=== PATIENT | female | born 1940 | race Caucasian/White ===

== ENCOUNTER → 2017-12-03 13:52 | Outpatient (CLI) | payer MEDICARE, OTHER, SELFPAY ==
--- NOTE | 2017-12-03 13:53 | CDU_ITS ---
Reason For Study: carotid artery calcification Rt. Velocities/BP Lt. Velocities/BP Prox CCA 86.2/13.5 cm/sec. Prox CCA 90.3/12.9 cm/sec. Mid CCA 76.8/11.1 cm/sec. Mid CCA 74.5/17.0 cm/sec. Dist CCA 78.0/15.2 cm/sec. Dist CCA 78.0/15.8 cm/sec. Prox ICA 147/22.6 cm/sec. Prox ICA 67.4/14.7 cm/sec. Mid ICA 126/18.7 cm/sec. Mid ICA 119/28.3 cm/sec. Dist ICA 101/24.6 cm/sec. Dist ICA 75.6/17.4 cm/sec. Rt. ICA/CCA = 1.9. Lt. ICA/CCA = 1.6. Prox ECA 183 cm/sec. Prox ECA 215 cm/sec. Rt. Vert. 50.4/14.1 cm/sec. Lt. Vert. 62.7/17.6 cm/sec. Right Extracranial There is homogeneous, smooth atherosclerotic plaque noted in the right common carotid artery. There is heterogeneous, irregular atherosclerotic plaque noted in the right internal carotid artery. Distal ICA is tortuous. There is heterogeneous, irregular atherosclerotic plaque noted in the right external carotid artery. Antegrade flow is noted in the right vertebral artery. Left Extracranial There is homogeneous, smooth atherosclerotic plaque noted in the left common carotid artery. There is heterogeneous, irregular atherosclerotic plaque noted in the left internal carotid artery. Distal ICA is tortuous. There is heterogeneous, irregular atherosclerotic plaque noted in the left external carotid artery. Antegrade flow is noted in the left vertebral artery. Interpretation Summary Moderate (50-69%) stenosis right extracranial internal carotid. Mild (<50%) stenosis left extracranial internal carotid. Flow within the vertebral arteries is antegrade bilaterally. Ordering Physician: Efrain Lyons Referring Physician: Efrain Lyons Performed By: Silver De, RVT
== END ==
PROVIDERS: Family Provider Family Medicine; PCP Family Medicine; Visit Provider Family Medicine
DX: I65.23 Occlusion and stenosis of bilateral carotid arteries (principal)
CPT/HCPCS: 93880

== ENCOUNTER → 2018-01-14 13:29 | Outpatient (CLI) | payer MEDICARE, OTHER, SELFPAY ==
--- NOTE | 2018-01-14 13:29 | DT_ITS ---
This patient was seen during an EMR downtime January 11, 2018 - January 18, 2018. This patient may have a combination of paper and electronic documentation or all paper documentation. All documentation is viewable within the e-chart portion of [employer] for each patient visit.
--- NOTE | 2018-01-14 13:34 | MRI_ITS ---
STUDY: MRI LUMBAR SPINE WITHOUT CONTRAST REASON FOR EXAM: Female, 77 years old. Chronic low back pain TECHNIQUE: Standardized fat and water weighted pulse sequences were obtained in the sagittal and axial planes. COMPARISON: 05/30/2016 FINDINGS: T12-L1: Bulging annulus with mild bilateral foraminal stenoses. Normal lumbar lordosis. There is a levoscoliosis of the lumbar spine. Normal conus medullaris that terminates at the L1 level. L1-2: Bulging annulus and bilateral facet and ligamentum flavum hypertrophy with moderate right foraminal stenosis. L2-3: Bulging annulus and bilateral facet and ligamentum flavum hypertrophy and facet joint effusions. Mild to moderate central canal and moderate bilateral foraminal stenoses. L3-4: Bulging annulus and bilateral facet and ligamentum flavum hypertrophy with moderate central canal and severe left and moderate right foraminal stenoses. L4-5: Bulging annulus and left facet hypertrophy with mild central canal stenosis and moderate left and mild right foraminal stenoses. L5-S1: Bulging annulus and bilateral facet hypertrophy with mild left foraminal stenosis. Normal visualized sacral ala. Normal visualized paraspinous soft tissue structures. Small renal cysts. MRI/Spine Lumbar (Routine) IMPRESSION: Scoliosis and diffuse degenerative disease. Severe left foraminal stenosis at the L3-4 level. Electronically Signed: Mat Whitfield MD at 1:08 EDT Tel , Service support ,
== END ==
PROVIDERS: Family Provider Family Medicine; PCP Family Medicine; Visit Provider Family Medicine
DX: M54.5 Low back pain (principal)
CPT/HCPCS: 72148

== ENCOUNTER → 2018-06-08 12:42 | Outpatient (CLI) | payer MEDICARE, OTHER, SELFPAY ==
--- NOTE | 2018-06-08 12:47 | CDU_ITS ---
[id number] ^CDU^Carotid Duplex Ultrasound [id number] TAG_START Cardiovascular Services Carotid Duplex Ultrasound [facility] [place] [id number] Ordering Physician: Efrain Lyons TAG_ENDED TAG_START Name: PILLO TRIANA Study Date: 06/08/2018 12:54 PM Patient Location: [facility] : 1940 Gender: Female Age: 77 yrs Ethnicity: C TAG_ENDED Reason For Study: carotid stenosis Rt. Velocities/BP Lt. Velocities/BP Prox CCA 65.1/15.2 cm/sec. Prox CCA 102/19.6 cm/sec. Mid CCA 69.2/14.1 cm/sec. Mid CCA 92.3/15.7 cm/sec. Dist CCA 80.9/13.5 cm/sec. Dist CCA 87.4/16.7 cm/sec. Prox ICA 161/27.5 cm/sec. Prox ICA 78.6/17.3 cm/sec. Mid ICA 121/19.6 cm/sec. Mid ICA 89.6/24.4 cm/sec. Dist ICA 72.0/15.9 cm/sec. Dist ICA 127/29.1 cm/sec. Rt. ICA/CCA = 2.3. Lt. ICA/CCA = 1.4. Prox ECA 173 cm/sec. Prox ECA 186 cm/sec. Rt. Vert. 70.7/19.6 cm/sec. Lt. Vert. 55.0/13.4 cm/sec. Right Extracranial There is heterogeneous, irregular atherosclerotic plaque noted in the right common carotid artery. There is heterogeneous, irregular atherosclerotic plaque noted in the right internal carotid artery. The right internal carotid artery is very tortuous. There is heterogeneous, irregular atherosclerotic plaque noted in the right external carotid artery. Antegrade flow is noted in the right vertebral artery. Left Extracranial There is homogeneous, smooth atherosclerotic plaque noted in the left common carotid artery. There is heterogeneous, irregular atherosclerotic plaque noted in the left internal carotid artery. The left internal carotid artery is very tortuous. There is heterogeneous, irregular atherosclerotic plaque noted in the left external carotid artery. Antegrade flow is noted in the left vertebral artery. Procedure Carotid Duplex [id number]. The exam was diagnostic. Exam performed in department. Interpretation Summary Moderate (50-69%) stenosis right extracranial internal carotid. Mild (<50%) stenosis left extracranial internal carotid. Flow within the vertebral arteries is antegrade bilaterally. TAG_START TAG_ENDED Ordering Physician: Efrain Lyons Performed By: Silver De RVT
== END ==
PROVIDERS: Family Provider Family Medicine; PCP Family Medicine; Referring Provider Family Medicine; Visit Provider Family Medicine
DX: I65.23 Occlusion and stenosis of bilateral carotid arteries (principal)
CPT/HCPCS: 93880

== ENCOUNTER → 2018-12-23 12:39 | Outpatient (CLI) | payer MEDICARE, OTHER, SELFPAY ==
--- NOTE | 2018-12-23 12:51 | CDU_ITS ---
Rt. Velocities/BP Lt. Velocities/BP Prox CCA 79.9/8.2 cm/sec. Prox CCA 70.6/8.0 cm/sec. Mid CCA 60.4/9.5 cm/sec. Mid CCA 84.9/13.5 cm/sec. Dist CCA 68.2/12.1 cm/sec. Dist CCA 62.9/12.4 cm/sec. Prox ICA 163.1/13.8 cm/sec. Prox ICA 68.4/12.4 cm/sec. Mid ICA 138.9/13.8 cm/sec. Mid ICA 66.2/15.7 cm/sec. Dist ICA 88.8/20.0 cm/sec. Dist ICA 132.2/24.1 cm/sec. Rt. ICA/CCA = 2.7. Lt. ICA/CCA = 1.6. Prox ECA 236.6/6.0 cm/sec. Prox ECA 132.1 cm/sec. Rt. Vert. 72.8/17.6 cm/sec. Lt. Vert. 44.1/9.1 cm/sec. Right Extracranial There is homogeneous, smooth atherosclerotic plaque noted in the right common carotid artery. There is heterogeneous, irregular atherosclerotic plaque noted in the right internal carotid artery. The right internal carotid artery is very tortuous. There is heterogeneous, irregular atherosclerotic plaque noted in the right external carotid artery. Antegrade flow is noted in the right vertebral artery. There is heterogeneous, irregular atherosclerotic plaque noted in the right bulb. Left Extracranial There is homogeneous, smooth atherosclerotic plaque noted in the left common carotid artery. There is heterogeneous, irregular atherosclerotic plaque noted in the left internal carotid artery. The left internal carotid artery is very tortuous. There is heterogeneous, irregular atherosclerotic plaque noted in the left external carotid artery. Antegrade flow is noted in the left vertebral artery. There is heterogeneous, irregular atherosclerotic plaque noted in the left bulb. Procedure Carotid Duplex [id number]. The exam was diagnostic. Exam performed in department. Interpretation Summary Moderate (50-69%) stenosis right extracranial internal carotid. Mild (<50%) stenosis left extracranial internal carotid. Flow within the vertebral arteries is antegrade bilaterally. Ordering Physician: Efrain Lyons Referring Physician: Iván Muniz Performed By: Silver De RVT
== END ==
PROVIDERS: Family Provider Family Medicine; PCP Family Medicine; Referring Provider Family Medicine; Visit Provider Family Medicine
DX: I65.23 Occlusion and stenosis of bilateral carotid arteries (principal)
CPT/HCPCS: 93880

== ENCOUNTER → 2020-01-11 13:18 | Outpatient (CLI) | payer MEDICARE, OTHER, SELFPAY ==
--- NOTE | 2020-01-11 13:28 | CDU_ITS ---
Reason For Study: CAROTID STENOSIS Rt. Velocities/BP Lt. Velocities/BP Prox CCA 56/9 cm/sec. Prox CCA 98/12 cm/sec. Mid CCA 66/10 cm/sec. Mid CCA 79/11 cm/sec. Dist CCA 67/12 cm/sec. Dist CCA 77/11 cm/sec. Prox ICA 148/17 cm/sec. Prox ICA 86/14 cm/sec. Mid ICA 107/26 cm/sec. Mid ICA 83/19 cm/sec. Dist ICA 121/28 cm/sec. Dist ICA 210/33 cm/sec. Rt. ICA/CCA = 2.2. Lt. ICA/CCA = 1.1. Prox ECA 168/6 cm/sec. Distal ICA velocities may be Rt. Vert. 60/13 cm/sec. overestimated due to vessel tortuosity. Prox ECA 166/0 cm/sec. Lt. Vert. 62/18 cm/sec. Right Extracranial There is homogeneous, smooth atherosclerotic plaque noted in the right common carotid artery. There is heterogeneous, irregular atherosclerotic plaque noted in the right internal carotid artery. There is heterogeneous, irregular atherosclerotic plaque noted in the right external carotid artery. Antegrade flow is noted in the right vertebral artery. There is heterogeneous, irregular atherosclerotic plaque noted in the right bulb. Left Extracranial There is homogeneous, smooth atherosclerotic plaque noted in the left common carotid artery. There is heterogeneous, irregular atherosclerotic plaque noted in the left internal carotid artery. There is homogeneous, smooth atherosclerotic plaque noted in the left external carotid artery. Antegrade flow is noted in the left vertebral artery. There is heterogeneous, irregular atherosclerotic plaque noted in the left bulb. Procedure Carotid Duplex [id number]. Exam performed in department. Interpretation Summary Moderate (50-69%) stenosis right extracranial internal carotid. Mild (<50%) stenosis left extracranial internal carotid. Flow within the vertebral arteries is antegrade bilaterally. Ordering Physician: Efrain Lyons Referring Physician: Efrain Lyons Performed By: Renee Mendez, EL, RVT
== END ==
PROVIDERS: PCP Family Medicine; Referring Provider Family Medicine; Visit Provider Family Medicine
DX: I65.23 Occlusion and stenosis of bilateral carotid arteries (principal)
CPT/HCPCS: 93880